=== PATIENT | female | born 1985 | race Caucasian/White ===

== ENCOUNTER 2016-11-10 15:11 | Emergency (ER) | payer OTHER ==
[2016-11-10 15:19] VITALS: BP 136/71; PULSE 93; TEMP 98; BMI 27.7
[2016-11-10] MEDS ORDERED: IBUPROFEN 600 MG TABLET (FP) PO ONE ×2 (16:02→16:04)
--- NOTE | 2016-11-10 16:26 | PDOC ---
History of Present Illness - General Chief Complaint: Injury Stated Complaint: FALL/RIGHT FOOT INJURY Time Seen by Provider: 11/10/16 15:55 History Source: Patient Exam Limitations: No Limitations - History of Present Illness Initial Comments: 11/10/16 16:29 31-year-old female status post mechanical fall down steps today. Patient states was walking on the steps when she slipped on her sock causing her to twist her right ankle and hit her lower back onto the step. Patient states initially was unable to get up but with assistance was able to go to the couch and states pain to the right ankle worsen. Patient states is able to ambulate in small steps with much effort secondary to pain. Patient states radiation of pain denies radiation of pain, previous injury to the affected area, or sensory changes distal of injury. Occurred: reports: just prior to arrival Severity: reports: mild Pain Location: reports: back, lower extremity Method of Injury: Yes: fall Modifying Factors: improves with: None Loss of Consciousness: no loss of consciousness Associated Symptoms (Fall): trouble walking Past History - Past Medical History Allergies/Adverse Reactions: Allergies Allergy/AdvReac Type Severity Reaction Status Date / Time No Known Allergies Allergy Verified 11/10/16 15:19 Home Medications: Ambulatory Orders NK [No Known Home Medication] 11/10/16 Other medical history: DENIES - Psycho/Social/Smoking Cessation Hx Suicidal Ideation: No Smoking History: Never smoked Information on smoking cessation initiated: No Patient Lives Alone: No Lives with/in: family Trauma Specific PMHX - Complaint Specific PMHX Back Injury: Yes (left lower back) Review of Systems - Review of Systems Able to Perform ROS?: Yes Constitutional: No: Symptoms Reported HEENTM: No: Symptoms Reported Musculoskeletal: Yes: Joint Pain (right ankle) Integumentary: Yes: Bruising, Lumps Neurological: No: Symptoms reported Endocrine: No: Symptoms Reported Hematologic/Lymphatic: No: Symptoms Reported *Physical Exam - Vital Signs Last Vital Signs Temp Pulse Resp BP Pulse Ox 98 F 93 H 18 136/71 98 11/10/16 15:16 11/10/16 15:16 11/10/16 15:16 11/10/16 15:16 11/10/16 15:16 - Physical Exam General Appearance: Yes: Nourished, Appropriately Dressed. No: Apparent Distress HEENT: positive: EOMI, MARIO. negative: Pale Conjunctivae Neck: positive: Supple Respiratory/Chest: positive: Lungs Clear, Normal Breath Sounds. negative: Respiratory Distress, Accessory Muscle Use Cardiovascular: positive: Regular Rhythm, Regular Rate. negative: Murmur Gastrointestinal/Abdominal: positive: Soft Musculoskeletal: negative: Vertebral Tenderness Extremity: positive: Normal Capillary Refill, Swelling (right ). negative: Normal Range of Motion (unable to rotate or flex right ankle), Pedal Edema Integumentary: positive: Swelling (right ankle) Neurologic: positive: Motor Strength 5/5 (ambulatory with lip) Procedures - Splinting Splint Location: Right: Foot Pre-Proc Neuro Vasc Exam: normal Hand-Made Type: orthoglass Splint Type: Yes: Posterior Praveen Bandage: 3" Complications: No Good repositioning: Yes ED Treatment Course - RADIOLOGY Radiology Studies Ordered: Category Date Time Status ANKLE-RIGHT [RAD] Stat Radiology 11/10/16 16:02 Ordered - Medications Given in the ED: ED Medications Discontinued Medications Generic Name Dose Route Start Last Admin Trade Name Freq PRN Reason Stop Dose Admin Ibuprofen 600 mg 11/10/16 16:02 11/10/16 16:05 Motrin - PO 11/10/16 16:03 600 mg ONCE ONE Administration Medical Decision Making - Medical Decision Making 11/10/16 16:28 Pt s/p fall down steps twisting her right ankle and hitting her lower back on the step. On exam right mallelous tender, edematous, with LROM. Pt ordered for Motrin and xray 11/10/16 16:33 X-ray shows nondisplaced distal fibular fracture . Patient placed in posterior splint and given crutches. Patient to follow-up with Dr. cao. *DC/Admit/Observation/Transfer Diagnosis at time of Disposition: Fracture of distal end of fibula Qualifiers: Encounter type: initial encounter Fracture type: closed Fracture morphology: other fracture Laterality: right Qualified Code(s): S82.831A - Other fracture of upper and lower end of right fibula, initial encounter for closed fracture - Discharge Dispostion Disposition: HOME Condition at time of disposition: Good - Referrals Referrals: STAFF,NOT ON [Primary Care Provider] - Abraham Cao MD [Staff Physician] - - Patient Instructions Printed Discharge Instructions: DI for Shinbone Fracture Additional Instructions: X-ray shows a fracture to the fibula. I do recommend you follow up with Dr. Cao this week. Use crutches when ambulatory. Elevate when not ambulatory and apply ice to the affected areas. You may take Motrin 600 mg every 8 hours for pain control.
== END 2016-11-10 16:46 | disposition home or self-care (01) ==
LOC: JERFT 15:11
PROC: 2W3LX1Z Immobilization of Right Lower Extremity using Splint (ICD-10-PCS; principal; 2016-11-10)
DX: S82.831A Other fracture of upper and lower end of right fibula, initial encounter for closed fracture (principal); W10.8XXA Fall (on) (from) other stairs and steps, initial encounter; Y93.89 Activity, other specified; Y92.018 Other place in single-family (private) house as the place of occurrence of the external cause
CPT/HCPCS: 73610-TC-RT; 99282-25